=== PATIENT | female | born 1940 | race Caucasian/White ===

== ENCOUNTER 2020-06-12 14:59 | Emergency (ER) | payer MEDICARE, SELFPAY ==
[2020-06-12 15:28] VITALS: BP 223/93; PULSE 83; RESP 16; TEMP 36.6; O2SAT 99
--- NOTE | 2020-06-12 15:45 | ED.UPPEXIN ---
HPI - Extremity Injury (Upper) General Chief Complaint: Extremity Injury, Upper Stated Complaint: right wrist pain Source: patient Mode of arrival: ambulatory Limitations: no limitations History of Present Illness HPI narrative: Patient is a 79-year-old female who presents complaining of right thumb and right wrist pain x4 weeks. She denies injury. She reports pain increases at night last night describes pain as throbbing. She has been taking Tylenol with moderate relief. Patient reports history of carpal tunnel on the left hand with release and feels it is most likely the same. She denies all other complaints. MD complaint: injury to: right and wrist Related Data Home Medications Medication Instructions Recorded Confirmed aspirin 81 mg PO DAILY 06/12/20 06/12/20 atorvastatin [Lipitor] 20 mg PO DAILY 06/12/20 06/12/20 levothyroxine 75 mcg PO DAILY 06/12/20 06/12/20 lisinopril [Zestril] 10 mg PO DAILY 06/12/20 06/12/20 fu-iei-SI-Kg-Zw-smiekht-lutein 1 tablet PO DAILY 06/12/20 06/12/20 [Centrum] pyridoxine (vitamin B6) 1 mg PO DAILY 06/12/20 06/12/20 Allergies Allergy/AdvReac Type Severity Reaction Status Date / Time Sulfa (Sulfonamide Allergy Unknown Skin Verified 06/12/20 15:25 Antibiotics) Reaction sulfamethizole Allergy Unknown Skin Verified 06/12/20 15:25 Reaction Shrimp Allergy Unknown Other Uncoded 06/12/20 15:25 Review of Systems Review of Systems: Narrative: CONSTITUTIONAL: Denies fever, chills, or sweats. EYES: Denies visual changes, redness, or discharge. ENT: Denies rhinorrhea, congestion, sore throat, or otalgia. CARDIOVASCULAR: Denies chest pain, palpitations, or edema. RESPIRATORY: Denies cough or dyspnea. GASTROINTESTINAL: Denies abdominal pain, nausea, vomiting, or diarrhea. GENITOURINARY: Denies dysuria or hematuria. SKIN: Denies rash or itching. MUSCULOSKELETAL: Right wrist pain NEUROLOGIC: Denies headache, numbness, dizziness, or weakness. PSYCHIATRIC: Denies anxiety or depression. [facility] Past Medical History Medical History Achilles tendinitis of left lower extremity Brain aneurysm Broken arm Stroke Surgical History Surgical History H/O bladder repair surgery H/O: hysterectomy Hx of cholecystectomy Family History Family History Father Family history of malignant neoplasm Malignant neoplasm of prostate Mother Family history of heart disease in male family member before age 55 Diabetes mellitus Family history of cardiovascular disease Acute myocardial infarction Social History Social History Smoking status: Never smoker Alcohol intake: never Gender identity (if verbalized by the patient): Female Comments At the time of signature, I have reviewed and agree with nursing past medical, surgical, social, and family history unless otherwise noted. Please see nursing chart for further information. There is no relevant family history pertinent to the presenting complaint. Exam Narrative: Exam Narrative: GENERAL: Well-appearing, well-nourished, and in no acute distress. HEAD: Normocephalic, atraumatic. EYES: EOMI. No redness or drainage. Conjunctiva are normal. ENT: Mucous membranes pink and moist. CHEST: No respiratory distress. HEART: Regular rate and rhythm. EXTREMITIES: Normal range of motion. No edema. SKIN: Warm, dry, no rash. NEURO: No focal deficits. Alert and oriented x3. Gait steady. PSYCH: Normal affect. No signs of depression or anxiety. Course Vital Signs Vital signs: Vital Signs Temperature 36.6 C 06/12/20 15:28 Pulse Rate 83 06/12/20 15:28 Respiratory Rate 16 06/12/20 15:28 Blood Pressure 223/93 H 06/12/20 15:28 Pulse Oximetry 99 06/12/20 15:28 Temperature 36.6 C 06/12/20 15:28 Pulse Rate 83
[2020-06-12 15:52] VITALS: BP 194/83; PULSE 77
== END 2020-06-12 15:58 | disposition home or self-care (01) ==
PROVIDERS: Emergency Provider Nurse Practitioner; PCP Family Medicine
DX: G56.01 Carpal tunnel syndrome, right upper limb (principal); Z86.73 Personal history of transient ischemic attack (TIA), and cerebral infarction without residual deficits; Z79.82 Long term (current) use of aspirin
CPT/HCPCS: 99213; G0463

== ENCOUNTER 2020-06-24 15:45 | Emergency (ER) | payer MEDICARE, SELFPAY ==
--- NOTE | ~2020-06-24 | XR_ITS ---
XR hand LT min 3V DATE: 06/24/2020 16:54 INDICATION: Fall. Laceration to palm of the hand TECHNIQUE: 3 views COMPARISON: None FINDINGS: Diffuse osteopenia. No recent fracture or dislocation. No periosteal reaction or bone destruction. Osteoarthritic changes are noted at the interphalangeal joints primarily. IMPRESSION: No fracture or dislocation Osteopenia Osteoarthritis Reviewed, dictated and finalized at location B.
--- NOTE | ~2020-06-24 | XR_ITS ---
XR elbow RT min 3V 06/24/2020 16:53 INDICATION: Right elbow pain after fall PROCEDURE: 4 views right elbow COMPARISON: No prior studies for comparison. FINDINGS: Fracture, dislocation or subluxation is not identified. No significant joint effusion. Ther e are degenerative changes of the elbow. The soft tissues appear within normal limits. No foreign peng dies are identified. IMPRESSION: 1: NO ACUTE BONE OR JOINT ABNORMALITY IDENTIFIED. Reviewed, dictated and finalized at location A.
--- NOTE | ~2020-06-24 | XR_ITS ---
EXAMINATION: [id number]_CR EXAM DATE: 06/24/2020 18:19 INDICATION: Initial encounter following injury, with pain of the right ribs. Fell today. TECHNIQUE: Frontal projection of the upper right ribs, frontal projection of the lower right ribs, ob lique projection of the right ribs, frontal chest x-ray(s) for interpretation. There is no prior ct dy for comparison. FINDINGS: There are no displaced acute right rib fractures identified. There is no soft tissue abno rmality seen. Linear left basilar atelectasis. There are cholecystectomy clips. Cardiomediastinal royer houette is normal. There is no pneumothorax suspected. There is aortic arteriosclerosis. There is mod erate right shoulder primary osteoarthritis. Consider educating patient that even if there is a radiographically occult nondisplaced rib fracture, there is no specific treatment other than to refrain from activity that prevents healing. IMPRESSION: No displaced right rib fractures. Reviewed, dictated and finalized at location A.
--- NOTE | ~2020-06-24 | XR_ITS ---
XR hand RT min 3V DATE: 06/24/2020 16:54 INDICATION: Fall. Laceration to palm of the hand TECHNIQUE: 3 views COMPARISON: None FINDINGS: Diffuse osteopenia. There is osteoarthritic change involving primarily the interphalangeal joints. No fracture, dislocation, periosteal reaction or bone destruction is detected. IMPRESSION: Osteopenia Osteoarthritis No fracture or dislocation is detected Reviewed, dictated and finalized at location B.
--- NOTE | ~2020-06-24 | XR_ITS ---
XR elbow LT min 3V DATE: 06/24/2020 16:53 INDICATION: Fall. Posterior elbow injury, abrasion TECHNIQUE: 4 views COMPARISON: None FINDINGS: There is coronoid process spurring consistent with degenerative change. No fracture or disl ocation or joint effusion is detected. No periosteal reaction or bone destruction. IMPRESSION: No fracture or dislocation or joint effusion Reviewed, dictated and finalized at location B.
--- NOTE | ~2020-06-24 | CT_ITS ---
EXAMINATION: CT brain wo con EXAM DATE: 06/24/2020 16:30 INDICATION: Fell, forehead abrasion, head injury. History of aneurysm. TECHNIQUE: Spiral CT of the head was performed without contrast. Axial, coronal and sagittal images were reviewed. The dose-length product (DLP) for this examination was 605.33 mGy-cm. The exposure w as tailored according to patient size, and iterative reconstruction (ASIR) was used as additional dos e reduction technique. Comparison is made to prior examination from 03/22/2012. FINDINGS: There is moderate-sized region of right cerebellar encephalomalacia with adjacent aneurysm coils. No craniotomy defect identified. There are punctate old left thalamic and basal ganglia lacuna r infarctions. There is no acute intraparenchymal hemorrhage. No evidence of intraparenchymal brain mass lesion. No evidence of acute infarction. Please note that initial head CT has limited sensitiv ity for small or acute infarctions. There is moderate periventricular and subcortical hypodensity, no nspecific but probably related to small vessel ischemic disease. There is mild prominence of the kuhn lci and ventricles related to cerebral atrophy. There is intracranial carotid arteriosclerosis. Th ere are no extra-axial collections. There is no mass effect or midline shift. Patient has had bilat eral ocular lens surgery. There is right frontal scalp contusion, laceration. Mild to moderate ethmo id and maxillary nuchal periosteal thickening without air-fluid levels. Mastoid air cells are well ae rated. IMPRESSION: 1. No acute intracranial findings. 2. Right posterior fossa aneurysm coils, adjacent cerebellar encephalomalacia. 3. Old punctate left thalamic and basal ganglia lacunar infarctions. 4. Microangiopathy and atrophy. 5. Right frontal scalp contusion, laceration. Reviewed, dictated and finalized at location A.
[2020-06-24 15:47] VITALS: BP 181/88; PULSE 84; RESP 16; TEMP 36.8; O2SAT 96
--- NOTE | 2020-06-24 16:46 | ED.FALL ---
HPI - Fall General Chief Complaint: Fall Stated Complaint: FALL/ Source: patient Mode of arrival: EMS Limitations: no limitations History of Present Illness HPI Narrative: This is a 79 year old female who presents for evaluation of head injury s/p fall. She states she was walking in the park, and she was walking fast. While she was walking, she fell forward and she struck her head. She landed on her hands and elbows. She reports mild dizziness when she got up but denies headache, nausea or vomiting. She also denies neck pain. She has abrasions and laceration to both elbows and hands. She denies any lower extremity injury or pain. Her last tetanus was 2012. She reports she takes aspirin 81 mg. MD complaint: fall Related Data Home Medications Medication Instructions Recorded Confirmed aspirin 81 mg PO DAILY 06/12/20 06/12/20 atorvastatin [Lipitor] 20 mg PO DAILY 06/12/20 06/12/20 levothyroxine 75 mcg PO DAILY 06/12/20 06/12/20 lisinopril [Zestril] 10 mg PO DAILY 06/12/20 06/12/20 pg-naw-YN-Sa-Ju-fnvuzvd-lutein 1 tablet PO DAILY 06/12/20 06/12/20 [Centrum] pyridoxine (vitamin B6) 1 mg PO DAILY 06/12/20 06/12/20 Allergies Allergy/AdvReac Type Severity Reaction Status Date / Time Sulfa (Sulfonamide Allergy Unknown Skin Verified 06/24/20 15:53 Antibiotics) Reaction sulfamethizole Allergy Unknown Skin Verified 06/24/20 15:53 Reaction Shrimp Allergy Unknown Other Uncoded 06/24/20 15:53 Review of Systems Review of Systems: All systems reviewed & are unremarkable except as noted in HPI and below [facility] Past Medical History Medical History (Updated 06/24/20 @ 18:43 by Lenora Myers MD) Achilles tendinitis of left lower extremity Brain aneurysm Broken arm Stroke Surgical History Surgical History (Updated 06/24/20 @ 16:49 by Lenora Myers MD) H/O bladder repair surgery H/O cerebral aneurysm repair H/O: hysterectomy Hx of cholecystectomy Family History Family History Father Family history of malignant neoplasm Malignant neoplasm of prostate Mother Family history of heart disease in male family member before age 55 Diabetes mellitus Family history of cardiovascular disease Acute myocardial infarction Social History Social History Smoking status: Never smoker Alcohol intake: never Gender identity (if verbalized by the patient): Female Exam Const: General: alert Orientation/consciousness: patient oriented x3 HENMT: Other: right superficial laceration above medial right eyebrow 1.5 cm; small superficial midforehead 1 cm Eyes: Pupils: Equal, round and reactive pupils present EOM: EOMs intact bilaterally Neck: Neck: normal visual inspection Chest: Chest palpation & inspection: normal inspection of the chest and no tenderness Resp: Effort & Inspection: normal respiratory effort and no retractions Auscultation: clear to auscultation bilaterally Cardio: Rate: regular rate Rhythm: regular rhythm Heart sounds: no murmurs GI: GI Palp: Yes Soft to palpation, No Tenderness to palpation present (GI) and No Guarding due to palpation present (GI) Neuro: General: patient oriented x3 and moves all extremities Extrem: Other: FROM; abrasions to bilateral elbows; Psych: Mental Status: mental status grossly normal Affect: normal affect Course Reevaluation(s) Reevaluation #1: I discussed with patient that no acute fractures seen. They understand that although rib fractures not seen on xray they may still be present. She did not have rib tenderness on my exam but nurse states she was having pain. She ambulated unassisted with out any difficulty or dizziness Date: 06/24/20 Time: 18:40 Vital Signs Vital signs: Vital Signs Temperature 98.2 F 06/24/20 15:47 Pulse Rate 84 06/24/20 15:47 Respiratory Rate 16 06/24/20 15:47 Blood Pressure 181/
[2020-06-24] MEDS: ACETAMINOPHEN 500 MG TABLET 1000 MG PO (18:01)
[2020-06-24] MEDS: TETANUS,DIPHTHERIA,AC PERTUSSIS ADULT (0.5 ML) BOOSTRIX IM (18:01)
== END 2020-06-24 19:25 | disposition home or self-care (01) ==
PROVIDERS: Emergency Provider General Practice; PCP Family Medicine
DX: S01.81XA Laceration without foreign body of other part of head, initial encounter (principal); S60.511A Abrasion of right hand, initial encounter; S60.512A Abrasion of left hand, initial encounter; S50.312A Abrasion of left elbow, initial encounter; Z23 Encounter for immunization; Z86.73 Personal history of transient ischemic attack (TIA), and cerebral infarction without residual deficits; Y93.01 Activity, walking, marching and hiking; M85.842 Other specified disorders of bone density and structure, left hand; M85.841 Other specified disorders of bone density and structure, right hand; M19.041 Primary osteoarthritis, right hand; W01.0XXA Fall on same level from slipping, tripping and stumbling without subsequent striking against object, initial encounter
CPT/HCPCS: 12011; 70450; 71101; 73080; 73130; 90471; 90715; 99284; A9270

== ENCOUNTER 2020-08-08 09:16 | Outpatient (CLI) | payer MEDICARE, SELFPAY ==
--- NOTE | 2020-08-08 09:30 | ECG_ITS ---
Measurements Intervals [place] Rate: 67 P: 25 VA: 216 QRS: 50 QRSD: 103 T: 35 QT: 380 QTc: 402 Interpretive Statements SINUS RHYTHM WITH FIRST DEGREE AV BLOCK BORDERLINE ST ABNORMALITY- INFERIOR LEADS ABNORMAL ECG Electronically Signed On 08-08-2020 9:44:07 CDT by Rasheed Monreal D.O.
[2020-08-08 10:05] LABS: Anion Gap 2 mmol/L (8-16); Blood Urea Nitrogen 22 mg/dL (7-17); Calcium 9.2 mg/dL (8.4-10.2); Carbon Dioxide 36 mmol/L (22-30); Chloride 103 mmol/L (98-107); Estimated Glomerular Filt Rate 48; Glucose 282 mg/dL (65-105); Potassium 4.5 mmol/L (3.4-5.0); Sodium 141 mmol/L (137-145)
== END 2020-08-08 09:17 | disposition home or self-care (01) ==
PROVIDERS: Anesthesiology; PCP Family Medicine; Visit Provider Plastic Surgery
DX: I10 Essential (primary) hypertension (principal); E11.65 Type 2 diabetes mellitus with hyperglycemia; Z01.818 Encounter for other preprocedural examination; I44.0 Atrioventricular block, first degree
CPT/HCPCS: 36415; 80048; 93005

== ENCOUNTER → 2020-08-12 02:19 | Outpatient (CLI) | payer MEDICARE, SELFPAY ==
[2020-08-12 19:19] LABS: SARS-CoV-2 RNA PCR Negative
== END ==
PROVIDERS: PCP Family Medicine; Visit Provider Plastic Surgery
DX: Z01.812 Encounter for preprocedural laboratory examination (principal); Z20.822 Contact with and (suspected) exposure to COVID-19
CPT/HCPCS: C9803; U0003; U0005

== ENCOUNTER 2020-08-15 00:46 | Day surgery (SDC) | payer MEDICARE, SELFPAY ==
[2020-08-06 14:47] VITALS: BMI 31.4
--- NOTE | 2020-08-15 07:10 | WPDHPUPDATE1 ---
History and Physical Update Update Date/Time: 08/15/20 07:10 History and Physical has been reviewed, including an updated exam of the patient. There are NO changes in the patient's condition. Risks, benefits, and alternatives have been discussed and questions answered. Patient agrees to proceed with procedure.
--- NOTE | 2020-08-15 07:36 | WPDANESEPPF ---
Anes - Initial Pre Proc Eval Procedure: Operation Date: 08/15/20 09:00 Proposed Procedures p Release Right First Dorsal Compartment - Erasto Stratton MD s Excision Painful Scar Left Palm - Erasto Stratton MD Date/Time: 08/15/20 07:36 Surgeon: Erasto Stratton MD Pre Op Diagnosis: r first dorsal compartment syndrome,left palm scar Patient Data Age: 79 Gender: F Height: 1.57 m Weight: 78 kg Allergies Allergy/AdvReac Type Severity Reaction Status Date / Time Sulfa (Sulfonamide Allergy Unknown Skin Verified 08/15/20 07:12 Antibiotics) Reaction Shrimp Allergy Severe THROAT Uncoded 08/15/20 07:12 SWELLING Home Medications Medication Instructions Recorded Confirmed Type aspirin 81 mg PO DAILY 06/12/20 08/06/20 History atorvastatin [Lipitor] 20 mg PO DAILY 06/12/20 08/06/20 History levothyroxine 75 mcg PO QAM 06/12/20 08/06/20 History yg-lpc-LK-Dk-Bg-thfindd-lutein 1 tablet PO DAILY 06/12/20 08/06/20 History [Centrum] pyridoxine (vitamin B6) 1 mg PO DAILY 06/12/20 08/06/20 History lisinopril-hydrochlorothiazide 1 tablet PO QAM 08/06/20 08/06/20 History metoprolol succinate 50 mg PO QAM 08/06/20 08/06/20 History sitagliptin-metformin [Janumet XR] 1 tablet PO QACLUNCH 08/06/20 08/06/20 History Patient hx anesthesia problems: none Family hx anesthesia problems: none [facility] Past Medical History Medical History (Updated 08/15/20 @ 07:50 by Tanner Mattson DO) Achilles tendinitis of left lower extremity Brain aneurysm Broken arm Diabetes type 2, controlled Essential (primary) hypertension Hypothyroidism, unspecified Mixed hyperlipidemia 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 Surgical History Surgical History (Updated 08/14/20 @ 11:02 by Tanner Mattson DO) H/O bladder repair surgery H/O cerebral aneurysm repair H/O: hysterectomy History of appendectomy Hx of cholecystectomy Family History Family History Father Family history of malignant neoplasm Malignant neoplasm of prostate Mother Family history of heart disease in male family member before age 55 Diabetes mellitus Family history of cardiovascular disease Acute myocardial infarction Social History Social History (Updated 07/23/20 @ 11:47 by January Guzman [facility]) Alcohol intake: never Substance use: never Living arrangements: alone Gender identity (if verbalized by the patient): Female Spiritual care concerns: No Anes - Eval Final PreProcedure Day of Procedure 08/15/20 07:36 Patient weight: obese Heart: regular rate and rhythm Lungs: clear to auscultation and normal air movement Airway: Mallampati scale class IV Neurological: alert and oriented Last oral intake: >/= 8 hours ASA classification: III Emergent: no Anesthetic plan: proceed Anesthesia type and monitoring: general GIVS and standard monitoring Informed Consent: The patient's anesthetic plan and its attendant risks and benefits were discussed with the patient/family/POA. Questions were solicited and answers provided to the satisfaction of the patient/family/POA.
[2020-08-15] MEDS: LACTATED RINGERS 1,000 ML 30 ML IV CONT (07:40)
[2020-08-15 07:46] LABS: Glucose Point of Care 149 (65-105)
[2020-08-15 07:48] VITALS: BP 172/67; PULSE 59; TEMP 36.5; O2SAT 97
[2020-08-15 08:37] VITALS: BP 172/67; PULSE 59; TEMP 36.5; O2SAT 97
--- NOTE | 2020-08-15 09:23 | P.OPB_ITS ---
Procedure Note - Brief Procedure Note - Brief Date of procedure: 08/15/20 Pre-op diagnosis: r first dorsal compartment syndrome,left palm scar Post-op diagnosis: same Procedure performed: Release right 1st dorsal compartment. Excision of painful scar left palm. Anesthesia: MAC Surgeon: Erasto Stratton MD Circular Ripsaw Operator: Angel Estimated blood loss (mL): 0 Tourniquet time (min): 10 Drains: No Packing: No Pathology: none sent Complications: No immediate complications Condition: stable Disposition: same day
[2020-08-15] MEDS: LIDO 1%/EPINEPHRINE/PF 1:200,000 30 ML VIAL 5 ML XX (09:57)
[2020-08-15] MEDS: BACITRACIN OINTMENT 15 GM TUBE 1 APPLIC TOPICAL (10:01)
[2020-08-15 10:03] VITALS: BP 98/48; PULSE 65; RESP 16; O2SAT 93
--- NOTE | 2020-08-15 10:08 | PM.PROC ---
Procedure Note - Detailed Date of procedure: 08/15/20 Pre-op diagnosis: r first dorsal compartment syndrome,left palm scar Post-op diagnosis: same Procedure performed: Release right 1st dorsal compartment. 1 cm excision of painful scar left palm with simple repair 1.5 cm Description of procedure: The 2 sites were marked on the patient as she waited in the holding area. She was taken to the operating room and placed supine on the operating table a time-out was held and confirmed. She was given sedation anesthetic. Both upper extremities were prepped and draped in usual fashion. The tourniquet was inflated on the right side to 250 mmHg. The site over the 1st dorsal compartment was marked and locally infiltrated with 1% lidocaine with epinephrine. The incision was made through the skin. Blunt dissection to the retinaculum was performed. Cutaneous nerves were retracted out of the way. The retinaculum was incised opening the 1st dorsal compartment. This was completed distally and proximally with scissors. A single compartment was identified. The extensor pollicis brevis could be activated from that access. The skin was then closed with interrupted 4-0 Monocryl suture. The tourniquet was released. On the left palm the small scar site with possible foreign body was identified and locally infiltrated with 1% lidocaine with epinephrine. A 1 cm excision was carried out to remove the mass. This was taken through the palmar aponeurosis. No foreign material was identified. The skin was easily approximated with interrupted 5 0 nylon suture. Small bandages were applied. She is discharged with instructions in wound care and follow-up and a prescription for hydrocodone 5/325 5. Anesthesia: MAC Surgeon: Erasto Stratton MD Aoc Director Combat Operations Officer: Angel Estimated blood loss (mL): 1 Tourniquet time (min): 10 Drains: No Packing: No Pathology: none sent Complications: No immediate complications Condition: stable Disposition: same day
[2020-08-15 10:30] VITALS: BP 138/57; PULSE 57; RESP 16
[2020-08-15] MEDS: oxyCODONE HCL (*CRX) 2.5 MG TAB IR PO (10:53)
[2020-08-15 11:00] VITALS: BP 143/76; PULSE 58; RESP 16
[2020-08-15 11:36] LABS: Glucose Point of Care 148 (65-105)
== END 2020-08-15 11:39 | disposition home or self-care (01) ==
PROVIDERS: PCP Family Medicine; Visit Provider Plastic Surgery
PROC: (CPT 25000; principal; 2020-08-15 09:00)
PROC: (CPT 25000; 2020-08-15 09:00)
DX: M65.4 Radial styloid tenosynovitis [de Quervain] (principal); L90.5 Scar conditions and fibrosis of skin; I10 Essential (primary) hypertension; E11.9 Type 2 diabetes mellitus without complications; E03.9 Hypothyroidism, unspecified; E78.2 Mixed hyperlipidemia; Z86.73 Personal history of transient ischemic attack (TIA), and cerebral infarction without residual deficits; Z79.84 Long term (current) use of oral hypoglycemic drugs; Z79.82 Long term (current) use of aspirin; E66.9 Obesity, unspecified; Z68.32 Body mass index [BMI] 32.0-32.9, adult
CPT/HCPCS: 25000; 11421; 36415; 80048; 82948; 93005; A9270; C9803; J2704; J7120; U0003; U0005

== ENCOUNTER 2021-06-27 08:49 | Outpatient (CLI) | payer MEDICARE, SELFPAY ==
--- NOTE | ~2021-06-27 | MM_ITS ---
EXAMINATION: MM screening [facility] BI w oswaldo HISTORY: Screening TECHNIQUE: Craniocaudal and mediolateral oblique 3-D tomosynthesis images were obtained and synthetic 2-D images were generated. CAD analysis was submitted and interpreted. COMPARISON: Comparison to multiple prior studies sequentially, with oldest reviewed study dated 01/03. BREAST PARENCHYMAL COMPOSITION: There are scattered areas of fibroglandular density. FINDINGS: There is no evidence of suspicious mass, calcification, or architectural distortion to sugg est malignancy in either breast. There has been no suspicious interval change. IMPRESSION: 1. No mammographic evidence of malignancy. 2. Recommend routine screening mammography in one year. BI-RADS Category 1: Negative Reviewed, dictated and finalized at location A.
== END 2021-06-27 08:50 | disposition home or self-care (01) ==
LOC: ANHIMG 08:51
PROVIDERS: PCP Family Medicine; Visit Provider Family Medicine
DX: Z12.31 Encounter for screening mammogram for malignant neoplasm of breast (principal)
CPT/HCPCS: 77063; 77067

== ENCOUNTER 2021-07-28 12:15 | Emergency (ER) | payer MEDICARE, SELFPAY ==
--- NOTE | ~2021-07-28 | XR_ITS ---
EXAMINATION: XR elbow RT min 3V DATE: 07/28/2021 13:08 INDICATION: Right elbow pain. Fall. TECHNIQUE: 4 views of right elbow were obtained. COMPARISON: Right elbow radiographs 06/24/2020 FINDINGS: Bone alignment is normal. No fracture. Joint spaces are normal. There are enthesophytes at medial and lateral humeral epicondyles. No elbow joint effusion. IMPRESSION: 1. No fracture. Reviewed, dictated and finalized at location A. IMPRESSION: 1. No fracture.
[2021-07-28 12:33] VITALS: BP 184/64; PULSE 71; RESP 18; TEMP 36.4; O2SAT 98
--- NOTE | 2021-07-28 12:51 | ED.FALL ---
HPI - Fall General Chief Complaint: Fall Stated Complaint: Fall Time Seen by Provider: 07/28/21 12:52 Source: patient Mode of arrival: ambulatory Limitations: no limitations History of Present Illness HPI Narrative: 80-year-old female presents with complaint of pain to right knee and right elbow after fall today. Patient states that she was walking out [place] while talking to her friend, was not paying attention and tripped and fell. She has abrasions to right knee and right elbow. Ambulatory with steady gait. Wants x-ray of right elbow due to pain. Denies hitting head. No LOC. All systems reviewed and negative except as noted above. Related Data Home Medications Medication Instructions Recorded Confirmed aspirin 81 mg PO DAILY 06/12/20 05/27/21 atorvastatin [Lipitor] 20 mg PO DAILY 06/12/20 05/27/21 levothyroxine 75 mcg PO QAM 06/12/20 05/27/21 pyridoxine (vitamin B6) 1 mg PO DAILY 06/12/20 05/27/21 Janumet XR 1 tablet PO QACLUNCH 08/06/20 05/27/21 metoprolol succinate 50 mg PO DAILY 07/28/21 Allergies Allergy/AdvReac Type Severity Reaction Status Date / Time shellfish derived Allergy Severe Swelling Verified 07/28/21 12:52 of Lip/Tongue/Throat Sulfa (Sulfonamide Allergy Unknown Skin Verified 07/28/21 12:52 Antibiotics) Reaction Review of Systems Review of Systems: CONSTITUTIONAL: Denies fever, chills, or sweats. EYES: Denies visual changes, redness, or discharge. ENT: Denies rhinorrhea, congestion, sore throat, or otalgia. CARDIOVASCULAR: Denies chest pain, palpitations, or edema. RESPIRATORY: Denies cough or dyspnea. GASTROINTESTINAL: Denies abdominal pain, nausea, vomiting, or diarrhea. GENITOURINARY: Denies dysuria or hematuria. SKIN: Reports abrasions to right elbow and right knee. MUSCULOSKELETAL: Denies back pain, joint pain, or myalgia. NEUROLOGIC: Denies headache, numbness, or weakness. PSYCHIATRIC: Denies anxiety or depression. All other systems reviewed are negative, except as documented in HPI. 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 Type 2 diabetes mellitus Surgical History Surgical History H/O bladder repair surgery H/O cerebral aneurysm repair H/O: hysterectomy History of appendectomy Hx of cholecystectomy Family History Family History Father Family history of malignant neoplasm Malignant neoplasm of prostate Mother Family history of heart disease in male family member before age 55 Diabetes mellitus Family history of cardiovascular disease Acute myocardial infarction Social History Social History (Updated 05/26/21 @ 10:56 by RAMAKRISHNA Mcmahon) Alcohol intake: never Substance use: never Gender identity (if verbalized by the patient): Female Spiritual care concerns: No Comments At time of signature, agree with nursing past medical, surgical, social and family history. There is no relevant family history pertinent to the presenting complaint. Exam Narrative: GENERAL: This is a well-nourished, well-developed patient, in no apparent distress. HEAD: normocephalic, atraumatic. EYES: PERRL. Sclera clear/white. Vision is grossly intact. EARS: External ears normal NOSE: External nose normal NECK: Neck supple, non-tender without lymphadenopathy, masses or thyromegaly. No midline tenderness. CARDIOVASCULAR: Regular rate and rhythm without murmurs, gallops, or rubs. RESPIRATORY: Clear to auscultation. Breath sounds equal bilaterally. No wheezes, rales, or rhonchi. SKIN: warm, Dry, intact with no suspicious lesions or rash, good texture and turgor.
== END 2021-07-28 13:33 | disposition home or self-care (01) ==
PROVIDERS: Emergency Provider Nurse Practitioner Family; PCP Family Medicine
DX: S80.211A Abrasion, right knee, initial encounter (principal); S50.311A Abrasion of right elbow, initial encounter; W01.0XXA Fall on same level from slipping, tripping and stumbling without subsequent striking against object, initial encounter; E11.9 Type 2 diabetes mellitus without complications; I10 Essential (primary) hypertension; E03.9 Hypothyroidism, unspecified; E78.2 Mixed hyperlipidemia; Z86.73 Personal history of transient ischemic attack (TIA), and cerebral infarction without residual deficits
CPT/HCPCS: 73080; 99213; G0463

== ENCOUNTER 2022-11-07 17:08 | Emergency (ER) | payer MEDICARE, SELFPAY ==
[2022-11-07] VITALS (17 sets, daily range): BP systolic 159–191; BP diastolic 72–96; PULSE 62–76; RESP 16–20; TEMP 36.6; O2SAT 94–97
--- NOTE | ~2022-11-07 | CT_ITS ---
Noncontrast CT scan of the lumbar spine CLINICAL HISTORY: Back pain TECHNIQUE: Axial noncontrast imaging of the lumbar spine was performed. Sagittal and coronal reformat nara images were constructed. Dose reduction technique was used on this scan by utilizing automated ex posure control and iterative reconstruction technique. The dose-length product (DLP) was 1256.84 mGy- cm. FINDINGS: No fracture identified. Minimal grade 1 retrolisthesis of L2 over L3 present. At L1-L2, there is no disc bulge or herniation. There is moderate facet arthropathy. No central canal stenosis or neural foraminal narrowing. At L2-L3, there is severe degenerative disc narrowing. Disc bulge and facet arthropathy result in mod erate to severe spinal canal stenosis/thecal sac compression. There is moderate to advanced bilateral neural foraminal narrowing. At L3-L4, there is disc bulge and moderate facet arthropathy. There is mild to possibly moderate cent ral canal stenosis/thecal sac compression. There is severe bilateral neural foraminal narrowing. At L4-L5, there is disc bulge and advanced facet arthropathy, especially on the right side. No manjeet central canal stenosis. There is moderate to severe left neural foraminal narrowing, and severe right neural foraminal narrowing. At L5-S1, there is no disc bulge or herniation. There is facet arthropathy. No spinal canal stenosis or neural foraminal narrowing. Paravertebral soft tissues are unremarkable. Impression: No fracture. Minimal grade 1 retrolisthesis of L2 over L3. Advanced degenerative spondylosis at L2-L3 and L3-L4, as detailed above. Bilateral neural foraminal narrowing at L4-L5, as detailed above. Reviewed, dictated and finalized at [facility]. Impression: No fracture. Minimal grade 1 retrolisthesis of L2 over L3. Advanced degenerative spondylosis at L2-L3 and L3-L4, as detailed above. Bilateral neural foraminal narrowing at L4-L5, as detailed above.
--- NOTE | 2022-11-07 17:44 | ED.BACK ---
HPI - Back Pain/Injury General Chief Complaint: Back Pain/Injury Stated Complaint: back pain History of Present Illness HPI Narrative: 81-year-old female with a history of type 2 diabetes, hypertension, hypothyroidism reports for evaluation for low back pain x1 week, worsening over the past day. Patient states approximately week ago she has had a dull pain in her low back, however the past 2 days it is increasingly worsened and is now a sharp sensation that is worse with movement. She reports the pain is in her low back and her right paraspinous region and radiates into her right buttock. States she is able to ambulate but with difficulty secondary to pain. She denies radiation of pain down her leg, lower extremity numbness or paresthesias, weakness, saddle anesthesia, loss of bowel or bladder control or retention, fever, body aches or chills, vomiting, abdominal pain, chest pain or shortness of breath. She denies dysuria, hematuria or abdominal pain. Reports has been taking Tylenol and ibuprofen with relief until today when she did not get relief with her last dose of ibuprofen approximately an hour and a half ago. She is not on steroids or immunosuppressants. Related Data Home Medications Medication Instructions Recorded Confirmed aspirin 81 mg tablet 81 mg PO DAILY 06/12/20 06/04/22 pyridoxine (vitamin B6) 5 mg 1 mg PO DAILY 06/12/20 06/04/22 capsule Allergies Allergy/AdvReac Type Severity Reaction Status Date / Time shellfish derived Allergy Severe Swelling Verified 06/04/22 08:57 of Lip/Tongue/Throat Sulfa (Sulfonamide Allergy Unknown Skin Verified 06/04/22 08:57 Antibiotics) Reaction Review of Systems Review of Systems: CONSTITUTIONAL: Denies fever, chills EYES: Denies visual changes, redness, or discharge. ENT: Denies rhinorrhea, congestion, sore throat, or otalgia. CARDIOVASCULAR: Denies chest pain, palpitations, or edema. RESPIRATORY: Denies cough or dyspnea. GASTROINTESTINAL: Denies abdominal pain, nausea, vomiting, or diarrhea. GENITOURINARY: Denies dysuria or hematuria. SKIN: Denies rash or itching. MUSCULOSKELETAL: See HPI NEUROLOGIC: Denies headache, numbness, dizziness, or weakness. PSYCHIATRIC: Denies anxiety or depression. 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 Type 2 diabetes mellitus Surgical History Surgical History H/O bladder repair surgery H/O cerebral aneurysm repair H/O: hysterectomy History of appendectomy Hx of cholecystectomy Family History Family History Father Family history of malignant neoplasm Malignant neoplasm of prostate Mother Family history of heart disease in male family member before age 55 Diabetes mellitus Family history of cardiovascular disease Acute myocardial infarction Social History Social History Smoking status: Never smoker Alcohol intake: never Substance use: never Lack of Transportation: No Lack of Food: Never True Current Housing: I Have Housing Concerned About Future Housing: No Difficulty Paying Gas/Electric Bills: No Difficulty Paying for Meds: No Currently Unemployed: No Education: Master's Degree or Higher Difficulty w/ Childcare or Family Care: No Living arrangements: alone Gender identity (if verbalized by the patient): Female Spiritual care concerns: No Exam Narrative: GENERAL: Well-appearing, in no acute distress. Patient resting comfortably in exam bed. She is pleasant and conversational. HEAD: Normocephalic NECK:
[2022-11-07] MEDS: HYDROcodone/acetaminophen (*CRX) 5-325 MG TABLET 1 TAB PO (17:51)
[2022-11-07] MEDS: LIDOCAINE 5% PATCH 1 PATCH TRANSDERM (17:51)
== END 2022-11-07 20:48 | disposition home or self-care (01) ==
PROVIDERS: Emergency Provider Physician Assistant; PCP Emergency Medicine
DX: S39.012A Strain of muscle, fascia and tendon of lower back, initial encounter (principal); I10 Essential (primary) hypertension; E11.9 Type 2 diabetes mellitus without complications; E03.9 Hypothyroidism, unspecified; E78.2 Mixed hyperlipidemia; Z86.73 Personal history of transient ischemic attack (TIA), and cerebral infarction without residual deficits; Z90.710 Acquired absence of both cervix and uterus; Z90.49 Acquired absence of other specified parts of digestive tract; Z79.82 Long term (current) use of aspirin; Z79.84 Long term (current) use of oral hypoglycemic drugs; M47.816 Spondylosis without myelopathy or radiculopathy, lumbar region; X58.XXXA Exposure to other specified factors, initial encounter
CPT/HCPCS: 72131; 99284; A9270

== ENCOUNTER 2023-03-17 10:03 | Outpatient (CLI) | payer MEDICARE, SELFPAY ==
--- NOTE | 2023-03-17 | ECG_ITS ---
Measurements Intervals [place] Rate: 63 P: 34 WY: 214 QRS: 52 QRSD: 101 T: 30 QT: 375 QTc: 386 Interpretive Statements SINUS RHYTHM WITH FIRST DEGREE AV BLOCK NONSPECIFIC T-WAVE ABNORMALITY ABNORMAL ECG COMPARED TO ECG 08/08/2020 09:35:55 T-WAVE ABNORMALITY NOW PRESENT Electronically Signed On 03-17-2023 10:42:40 [employer] by Magdy Castillo M.D.
== END 2023-03-17 10:04 | disposition home or self-care (01) ==
LOC: ANHLAB 10:06
PROVIDERS: PCP Emergency Medicine; Visit Provider Podiatrist Foot & Ankle Surgery
DX: I44.0 Atrioventricular block, first degree (principal); R94.31 Abnormal electrocardiogram [ECG] [EKG]; R93.1 Abnormal findings on diagnostic imaging of heart and coronary circulation; R03.0 Elevated blood-pressure reading, without diagnosis of hypertension
CPT/HCPCS: 93005